=== PATIENT | male | born 1950 | race Caucasian/White ===

== ENCOUNTER → 2017-09-27 10:20 | Day surgery (SDC) | payer MEDICARE, BC ==
[~2017-09-27 10:20] MED LIST: Diazepam TAB(*) 5 MG ONE; Heparin 2 UNITS/ML IVPREMIX* 0 ML IV ONE; Heparin 2 UNITS/ML IVPREMIX* 3,000 ML IV ONE; Heparin(*) 1000 UNIT/ML 10 ML VIAL CATH LAB IV ONE; Iodixanol* (CONTRAST) 320 MG/ML 100 ML SDV ONE; Iohexol 350 (CONTRAST) 200 ML MDV IV ONE; Lidocaine 1% INJ* 10 MG/ML 30 ML SDV ONE; Midazolam* 1 MG/ML 10 ML VIAL (10 MG) ONE; NS 0.9% 1000 ML* 1,000 ML IV SCH; VERAPAMIL 2.5 MG/ML 4 ML VIAL ONE; diPHENhydraMINE PO* 25 MG ONE; fentaNYL* 50 MCG/ML 2 ML VIAL (100 MCG VIAL) ONE; nitroGLYCERIN DRIP* 25,000 MCG/250 ML BTL ONE
[2017-09-27 17:43] VITALS: BP 127/61
--- NOTE | 2017-10-04 04:58 | CATH ---
Cc: Dr. Werner; Dr. Rodriguez; Dr. Kobi Duong * CATH REPORT: DATE OF PROCEDURE: 09/27/[address] - [facility] CATH PRIMARY CARE PHYSICIAN: Dr. Werner. PACKING AND SHIPPING CLERK: Dr. Rodriguez. CARDIAC SURGEON: Dr. Kobi Duong at [facility] PROCEDURES: Right radial artery access, bilateral selective coronary cineangiography. HISTORY: A 67-year-old male with bicuspid aortic valve stenosis referred for coronary angiography prior to evaluation for AVR. PROCEDURE ACCESS: Right radial artery sheath 6-F slender. MEDICATIONS: 1. Subcu lidocaine. 2. IV Versed. 3. IV fentanyl. 4. Heparin 3000 units. 5. Verapamil 3 mg. 6. Nitroglycerin 300 mcg IA. DIAGNOSTIC CATHETER: 5F TIG4. HEMODYNAMICS: Initial BP 164/79, final BP 126/80. ANGIOGRAPHY: There is a heavy calcification of the aortic valve leaflets, which have a diminished excursion. There is also calcification of the left main and LAD, proximal circumflex. Left main: The left main is normal in size, has mild distal taper without significant stenosis. LAD: The LAD is moderate, it supplies a very small first diagonal, moderate second diagonal, moderate third diagonal. The third diagonal has a 40% to 50% stenosis, the LAD beyond the third diagonal has luminal irregularity, the LAD ends past the apex. Circumflex: The circumflex is large, codominant, has a smooth tubular 40% to 50 % proximal stenosis, then supplies a large bifurcated marginal, ends with a large posterolateral followed by small caliber circumflex PDA. Distal circumflex has no significant stenosis. RCA: The RCA is codominant, small to moderate, has a proximal 80% stenosis, the mid RCA has calcification, has nonobstructive stenosis, distally the RCA supplies a moderate PDA. CONCLUSION: 1. Two-vessel coronary disease, circumflex and RCA, with at most moderate LAD diagonal branch disease. 2. Successful right radial artery access. [id number]/[facility] #: [id number] [facility]ITALDorothy
== END | disposition home or self-care (01) ==
LOC: CHICATH 10:20
PROVIDERS: ATTEND Internal Medicine Cardiovascular Disease
DX: Q23.1 Congenital insufficiency of aortic valve (principal); I25.10 Atherosclerotic heart disease of native coronary artery without angina pectoris; Q23.0 Congenital stenosis of aortic valve; I70.213 Atherosclerosis of native arteries of extremities with intermittent claudication, bilateral legs; R06.02 Shortness of breath; R53.83 Other fatigue; E78.2 Mixed hyperlipidemia; I10 Essential (primary) hypertension; K21.9 Gastro-esophageal reflux disease without esophagitis; Z87.891 Personal history of nicotine dependence; R09.89 Other specified symptoms and signs involving the circulatory and respiratory systems
CPT/HCPCS: 93454; 99156; A9270-GY; J1644; J2250; J3010

== ENCOUNTER 2018-04-04 19:55 | Emergency (ER) | payer MEDICARE, OTHER ==
--- OUTSIDE RECORDS SUMMARY | 2018-04-04 20:33 | XMS REPORT ---
:1950 External Reference #:[id number] Author Organization [facility] Address [address] [place] [address] [place] [address] Phone [phone] Care Team Providers Name Role Phone Carli Orellana MD Primary Care Physician Unavailable Payers Type Date Identification Numbers Payment Provider Subscriber Medicare Primary Policy Number: [id number] Medicare Claudia Conway PayID: [id number] [address] [place] [address] Commercial PayID: [id number] [facility] Claudia Conway [address] [place] [address] Problems Date Description Provider Status Onset: 09/19/2017 Congenital insufficiency of aortic Jazlyn Rodriguez M.D. Active valve Onset: 09/19/2017 Congenital stenosis of aortic Jazlyn Rodriguez M.D. 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 Active atherosclerosis of shawnee artery of limb Onset: 09/19/2017 Mixed hyperlipidemia Jazlyn Rodriguez M.D. Active Onset: 12/01/2017 Carotid artery occlusion Jazlyn Rodriguez M.D. Active Onset: 12/01/2017 Essential hypertension Jazlyn Rodriguez M.D. Active Onset: 12/01/2017 Heart valve replacement Jazlyn Rodriguez M.D. Active Onset: 10/05/2017 Aortic valve disorder Carlton Ann MD, Active [facility] Family History Date Family Member(s) Problem(s) Comments General Diabetes paternal grandparents Mother Diabetes Social History Type Date Description Comments Marital Status Lives With Spouse Occupation Retired retired chef & owner of [employer] ETOH Use Occasionally consumes beer socially Smoking Patient is a former smoker quit in 2014, smoked for 50 years 1 ppd Recreational Drug Use Denies Drug Use Daily Caffeine Consumes on average 2 cups of regular coffee per day Exercise Type/Frequency Exercises regularly walking daily 2 miles per day 4 days per week Allergies, Adverse Reactions, Alerts Date Description Reaction Status Severity Comments 09/19/2017 Lisinopril active Severe per PCP records 09/19/2017 Prinivil active Severe per PCP records 09/19/2017 Cardura migraine active Moderate to Severe per PCP record 09/19/2017 Simvastatin active mentation foggy 07/21/2016 NKDA inactive Medications Medication Date Status Form Strength Qnty SIG Indications Ordering Provider Spironolactone/ 03/27/ Active Tablets 25-25mg 1/2 tab by Kathryn Hardy Hydrochlorothia 2018 mouth every , N.P. Rosuvastatin 03/12/ Active Tablets 20mg 36tab 1 tab M,W Jazlyn Calcium 2017 and Monday. Rosita Rodriguez Pantoprazole / Active Tablets DR 40mg 1 by mouth Unknown Sodium 0000 twice a day Metoprolol / Active Tablets 25mg 90tab 1 by mouth Jazlyn Tartrate 0000 s twice daily Rosita Rodriguez Aspirin Ec / Active Tablets DR 325mg take 1 tab Unknown 0000 by mouth every day Rosuvastatin 10/06/ Hx Tablets 10mg 12tab take 2 Jazlyn Calcium 2017 - s tablet by Michael, 03/12/ mouth [place] Jernigan M.D. 2017 Aspirin 81 Low 10/04/ Hx Chewtabs 81mg 90uni 1 by mouth Carlton Alaniz 2018 - ts every day Soddarío, 03/26/ , FACC, 2018 FSCAI Betamethasone / Hx Cream 0.05% apply twice Unknown Dipropionate 0000 - a day 2017 Spironolactone/ / Hx Tablets 25-25mg 1 by mouth Unknown Hydrochlorothia 0000 - every day zide 2017 Labetalol HCL / Hx Tablets 100mg 1 by mouth Unknown 0000 - twice a day 2017 Amlodipine / Hx Tablets 5mg 1 by mouth Unknown Besylate 0000 - twice a day 2017 Tums / Hx Chewtabs 500mg 2 chewtabs Unknown 0000 - by mouth 11/30/ daily as 2018 needed indigestion Ferrous / Hx Tablets 324(37.5F 30tab 1 by mouth Unknown Gluconate 0000 - e) mg s bid 2017 Folic Acid / Hx Tablets 1mg 1 by mouth Unknown 0000 - every day 2017 Hydrocodone/Apa / Hx 1-2 by mouth Unknown p 0000 - 4 times per 2018 Colace / Hx Capsules 100mg 1 tab by Unknown 0000 - mouth 2 times a day 2018 as needed Vital Signs Date Vital Result Comment 03/27/2018 Height 69.5 inches 5'9.50" Weight 197.00 lb Heart Rate 72 /min BP Systolic Sitting 130 mmHg lue reg cuff BP Diastolic Sitting 70 mmHg lue reg cuff BP Systolic Standing 122 mmHg BP Diastolic Standing 70 mmHg Respiratory Rate 16 /min BMI (Body Mass Index) 28.7 kg/m2 Ejection Fraction 55-60% 01/18/2018 ecco 01/26/2018 Height 69.5 inches 5'9.50" Weight 191.00 lb with shoes Heart Rate 70 /min BP Systolic Sitting 140 mmHg Lue reg cuff BP Diastolic Sitting 90 mmHg Lue reg cuff BP Systolic Standing 132 mmHg Lue reg cuff BP Diastolic Standing 90 mmHg Lue reg cuff Respiratory Rate 16 /min BMI (Body Mass Index) 27.8 kg/m2 12/01/2017 Height 69.5 inches 5'9.50" Weight 188.25 lb W/Shoes Heart Rate 78 /min BP Systolic Sitting 110 mmHg L/Arm Reg Cuff BP Diastolic Sitting 68 mmHg L/Arm Reg Cuff BP Systolic Standing 108 mmHg L/Arm Reg Cuff BP Diastolic Standing 68 mmHg L/Arm Reg Cuff BMI (Body Mass Index) 27.4 kg/m2 Ejection Fraction 60-65% Echocardiogram 08/24/2017 10/05/2017 Height 69.5 inches 5'9.50" Weight 202.00 lb w/ shoes Heart Rate 78 /min BP Systolic Sitting 132 mmHg lue reg cuff BP Diastolic Sitting 74 mmHg lue reg cuff BP Systolic Standing 138 mmHg lue reg cuff BP Diastolic Standing 82 mmHg lue reg cuff Respiratory Rate 18 /min BMI (Body Mass Index) 29.4 kg/m2 Ejection Fraction 60-65% echo 08/24/17 09/19/2017 Height 69.5 inches 5'9.50" Weight 204.00 lb Heart Rate 92 /min BP Systolic 130 mmHg Rue reg cuff BP Diastolic 70 mmHg Rue reg cuff BP Systolic Sitting 132 mmHg Lue reg cuff BP Diastolic Sitting 76 mmHg Lue reg cuff BP Systolic Standing 126 mmHg Lue BP Diastolic Standing 88 mmHg Lue Respiratory Rate 16 /min BMI (Body Mass Index) 29.7 kg/m2 Ejection Fraction 60-65% 08/24/17 08/04/2016 Heart Rate 78 /min Respiratory Rate 16 /min Body Temperature 97.1 F 07/28/2016 Height 69 inches 5'9" Weight 202.00 lb Heart Rate 68 /min BP Systolic 144 mmHg BP Diastolic 90 mmHg Respiratory Rate 16 /min Body Temperature 97.6 F BMI (Body Mass Index) 29.8 kg/m2 07/21/2016 Height 69 inches 5'9" Weight 202.00 lb Heart Rate 72 /min BP Systolic 142 mmHg BP Diastolic 82 mmHg Respiratory Rate 18 /min Body Temperature 97.4 F BMI (Body Mass Index) 29.8 kg/m2 Results Test Date Test Result H/L Range Note Laboratory test finding 01/16/2018 Creatine Kinase(CK) 60 U/L 10-223 1 Lipid Profile 01/16/2018 Triglycerides 192 mg/dL 2 (Trig/Chol/HDL) Cholesterol 152 mg/dL 3 HDL Cholesterol 33.1 mg/dL 4 LDL Cholesterol 81 mg/dL 5 Laboratory test finding 01/16/2018 Ast (Sgot) 13 U/L 13-39 6 Basic Metabolic Panel 01/16/2018 Sodium 136 mmol/L Low 139-145 Potassium 4.1 mmol/L 3.5-5.0 Chloride 100 mmol/L Low 101-111 Co2 Carbon Dioxide 27 mmol/L 22-32 Anion Gap 9 mmol/L 2-11 Glucose 83 mg/dL 70-100 Blood Urea Nitrogen 21 mg/dL 6-24 Creatinine 1.28 mg/dL High 0.67-1.17 BUN/Creatinine Ratio 16.4 8-20 Calcium 9.6 mg/dL 8.6-10.3 Egfr Non- 55.9 >60 Egfr 71.9 >60 7 Basic Metabolic Panel 10/23/2017 Sodium 136 mmol/L 133-145 Potassium 4.0 mmol/L 3.5-5.0 Chloride 99 mmol/L Low 101-111 Co2 Carbon Dioxide 30 mmol/L 22-32 Anion Gap 7 mmol/L 2-11 Glucose 80 mg/dL 70-100 Blood Urea Nitrogen 29 mg/dL High 6-24 Creatinine 1.18 mg/dL High 0.67-1.17 BUN/Creatinine Ratio 24.6 High 8-20 Calcium 9.9 mg/dL 8.6-10.3 Egfr Non- 61.4 >60 Egfr 78.9 >60 8 Basic Metabolic Panel 09/22/2017 Sodium 135 mmol/L 133-145 Potassium 4.0 mmol/L 3.5-5.0 Chloride 98 mmol/L Low 101-111 Co2 Carbon Dioxide 29 mmol/L 22-32 Anion Gap 8 mmol/L 2-11 Glucose 89 mg/dL 70-100 Blood Urea Nitrogen 23 mg/dL 6-24 Creatinine 1.29 mg/dL High 0.67-1.17 BUN/Creatinine Ratio 17.8 8-20 Calcium 9.8 mg/dL 8.6-10.3 Egfr Non- 55.4 >60 Egfr 71.2 >60 9 Inr/Protime 09/22/2017 Inr 0.99 0.77-1.02 CBC Auto Diff 09/22/2017 White Blood Count 9.8 10^3/uL 3.5-10.8 Red Blood Count 4.57 10^6/uL 4.0-5.4 Hemoglobin 13.0 g/dL Low 14.0-18.0 Hematocrit 39 % Low 42-52 Mean Corpuscular Volume 85 fL 80-94 Mean Corpuscular Hemoglobin 28 pg 27-31 Mean Corpuscular HGB Conc 33 g/dL 31-36 Red Cell Distribution Width 14 % 10.5-15 Platelet Count 373 10^3/uL 150-450 Mean Platelet Volume 8 um3 7.4-10.4 Abs Neutrophils 7.1 10^3/uL 1.5-7.7 Abs Lymphocytes 1.6 10^3/uL 1.0-4.8 Abs Monocytes 0.8 10^3/uL 0-0.8 Abs Eosinophils 0.3 10^3/uL 0-0.6 Abs Basophils 0.1 10^3/uL 0-0.2 Abs Nucleated RBC 0 10^3/uL Granulocyte % 71.9 % 38-83 Lymphocyte % 15.9 % Low 25-47 Monocyte % 8.5 % 1-9 Eosinophil % 2.6 % 0-6 Basophil % 1.1 % 0-2 Nucleated Red Blood Cells % 0 Cath Panel 09/22/2017 Partial Thrombo Time 30.2 seconds 26.0-36.3 PTT Laboratory test 07/21/2016 Surgical Pathology SEE RESULT BELOW 10 finding 1 FASTING January 2018 on Rosuvastatin 10 mg M W F Copy Result to: CARLI ORELLANA ([id number]) 2 Desirable: <150 Borderline High: 150-199 High: 200-499 Very High: >500 3 Desirable: <200 Borderline High: 200-239 High: >239 4 Low: <40 Desirable: 40-60 High: >60 5 Desirable: <100 Near Optimal: 100-129 Borderline High: 130-159 High: 160-189 Very High: >189 6 FASTING January 2018 on Rosuvastatin 10 mg M W F Copy Result to: CARLI ORELLANA ([id number]) 7 Because ethnic data is not always readily available, this report includes an eGFR for both -Americans and non- Americans. The National Kidney Disease Education Program (NKDEP) does not endorse the use of the MDRD equation for patients that are not between the ages of 18 and 70, are , have extremes of body size, muscle mass, or nutritional status, or are non- or non-. According to the National Kidney Foundation, irrespective of diagnosis, the stage of the disease is based on the level of kidney function: Stage Description GFR(mL/min/1.73 m(2)) 1 Kidney damage with normal or decreased GFR 90 2 Kidney damage with mild decrease in GFR 60-89 3 Moderate decrease in GFR 30-59 4 Severe decrease in GFR 15-29 5 Kidney failure <15 (or dialysis) 8 Because ethnic data is not always readily available, this report includes an eGFR for both -Americans and non- Americans. The National Kidney Disease Education Program (NKDEP) does not endorse the use of the MDRD equation for patients that are not between the ages of 18 and 70, are , have extremes of body size, muscle mass, or nutritional status, or are non- or non-. According to the National Kidney Foundation, irrespective of diagnosis, the stage of the disease is based on the level of kidney function: Stage Description GFR(mL/min/1.73 m(2)) 1 Kidney damage with normal or decreased GFR 90 2 Kidney damage with mild decrease in GFR 60-89 3 Moderate decrease in GFR 30-59 4 Severe decrease in GFR 15-29 5 Kidney failure <15 (or dialysis) 9 Because ethnic data is not always readily available, this report includes an eGFR for both -Americans and non- Americans. The National Kidney Disease Education Program (NKDEP) does not endorse the use of the MDRD equation for patients that are not between the ages of 18 and 70, are , have extremes of body size, muscle mass, or nutritional status, or are non- or non-. According to the National Kidney Foundation, irrespective of diagnosis, the stage of the disease is based on the level of kidney function: Stage Description GFR(mL/min/1.73 m(2)) 1 Kidney damage with normal or decreased GFR 90 2 Kidney damage with mild decrease in GFR 60-89 3 Moderate decrease in GFR 30-59 4 Severe decrease in GFR 15-29 5 Kidney failure <15 (or dialysis) 10 SEE RESULT BELOW Name: CLAUDIA CONWAY : [address]: Tino Lal MD Acct: [id number] Unit: [id number] AGE: 66 Location: [facility] Re07/21/16 SEX: M Status: REG REF SPEC: [id number] VENKATESH: 07/21/16-[address] [facility] [address]: Tino Lal MD REQ: [id number] RECD: 07/21/16 STATUS: JACK CROWDER DR: Carli Orellana MD _ ORDERED: PASS STAIN, GMSS, LEVEL IV COMMENTS: [id number] FINAL DIAGNOSIS Skin, right arm, biopsy: -- Hypertrophic actinic keratosis. COMMENT: GMS and PAS stains, with appropriately reacting controls, are negative for fungal organisms. Dr. Mayen reviewed this case in intradepartmental consultation and agrees with the diagnosis. CLINICAL HISTORY No history given GROSS DESCRIPTION The specimen is received in formalin labeled, Right Arm Lesion, and consists of a 0.3 x 0.2 cm pandey-white ovoid skin punch excised to a depth of 0.5 cm. Received separately in the same container is a 0.3 x 0.2 x 0.2 cm pandey-bartlett irregular probable skin fragment. Entirely submitted, one cassette. Signed (signature on file) Pratima Magallanes MD 05/03 1043 END OF REPORT * ML=Testing performed at Main Lab DEPARTMENT OF PATHOLOGY, [address] [place] [address] Albert Mayen M.D. Director [facility] # [id number] Procedures Date CPT Code Description Status 01/18/2018 36742 ECHO Transthoracic, Real-Time 2D With Doppler And Color Completed Flow 01/18/2018 00531 ECHO Transthoracic, Real-Time 2D With Doppler And Color Completed Flow 12/01/2017 07055 EKG Tracing & Interpretation Completed 10/17/2017 27361 Carotid Doppler,Bilateral Completed 10/17/2017 11443 Carotid Doppler,Bilateral Completed 09/27/2017 30072 Cath PLMT&NJX L Ventriculog Img S&I Completed 09/19/2017 85689 EKG Tracing & Interpretation Completed 08/24/2017 02953 ECHO Transthoracic, Real-Time 2D With Doppler And Color Completed Flow 07/28/2016 41276 Excision, Benign Trunk,Arms,Legs 0.6 CM To 1.0 CM Completed 07/21/2016 66604 Biopsy Skin Lesion Single Completed Encounters Type Date Location Provider CPT E/M Dx Office Visit 01/26/2018 4:00p [facility] Jazlyn Rodriguez M.D. 56498 Z95.2 [facility] I25.10 I65.23 E78.2 Office Visit 12/01/2017 8:40a [facility] Jazlyn Rodriguez M.D. 79059 Q23.0 [facility] AT [facility] [place] Z95.2 I10 E78.2 I65.23 Office Visit 10/05/2017 3:20p [facility] Carlton Ann, 76732 I35.0 [facility] AT [facility] [place] MD, FACC, FSCAI Office Visit 09/19/2017 9:40a [facility] Jazlyn Rodriguez M.D. 11631 Q23.1 [facility] Q23.0 I70.213 I10 E78.2 R09.89 Plan of Care Future Appointment(s):04/03/2018 10:00 am - Nurse Visit IC at [facility]05/04/2018 10:20 am - Jazlyn Rodriguez M.D. at [facility] AT [facility] [place]03/27/2018 - Kathryn Aponte N.PDaraI25.10 Athscl heart disease of shawnee coronary artery w/o ang yuhgkA30.23 Occlusion and stenosis of bilateral carotid ilwocgnzF49.2 Mixed bhxbvwxvajqjihE05.2 Presence of prosthetic heart [id number] Essential (primary) hypertensionFollow up:NV to check BP 1 week with machine OV 04/2018Recommendations:DECREASE Metoprolol to 25mg TWICE daily Restart Elijah/ HCTZ 1/2 tab daily Have labs checked 2-3 weeks
[2018-04-04] MEDS ORDERED: Ondansetron INJ* 2 MG/ML VIAL IV ONE ×2 (20:44→20:46)
[2018-04-04] MEDS ORDERED: NS 0.9% 1000 ML* 1,000 ML IV ONE (20:44)
[2018-04-04 20:57] LABS: ABS Basophils 0.1 10^3/ul (0-0.2); ABS Eosinophils 0.2 10^3/ul (0-0.6); ABS Lymphocytes 1.2 10^3/ul (1.0-4.8); ABS Monocytes 0.8 10^3/ul (0-0.8); ABS Neutrophils 7.5 10^3/ul (1.5-7.7); ABS Nucleated RBC 0 10^3/ul; Hematocrit 38 % (42-52); Hemoglobin 12.5 g/dl (14.0-18.0); Lymphocyte % 12.3 % (25-47); Mean Corpuscular HGB Conc 33 g/dl (31-36); Mean Corpuscular Hemoglobin 27 pg (27-31); Mean Corpuscular Volume 82 fL (80-94); Mean Platelet Volume 7.6 um3 (7.4-10.4); Nucleated Red Blood Cells % 0; Platelet Count 273 10^3/ul (150-450); Red Blood Count 4.58 10^6/ul (4.00-5.40); Red Cell Distribution Width 15 % (10.5-15); White Blood Count 9.7 10^3/ul (3.5-10.8)
--- NOTE | 2018-04-04 20:58 | ED ---
Abdominal Pain/Male - HPI Summary HPI Summary: This patient is a 67 year old M [facility] by with a chief complaint of sudden onset waxing and waning N/V since just after dinner this PM. He endorses N/V (2x emetic), sweats, chills, HTN, vertigo. Pt denies CP, abd pain, diarrhea. SHx heart surgery, carotid endarterectomy. - History of Current Complaint Chief Complaint: EDNauseaVomitDiarrh Stated Complaint: VOMITING/BP SPIKE Time Seen by Provider: 04/04/18 20:37 Hx Obtained From: Patient Onset/Duration: Sudden Onset, Lasting Hours, Still Present Timing: Constant - but waxing and waning Severity Initially: Moderate Severity Currently: Mild Pain Intensity: 0 Pain Scale Used: 0-10 Numeric Radiates: No Character: Not Applicable Aggravating Factor(s): Food Alleviating Factor(s): Nothing Associated Signs And Symptoms: Positive: Diaphoresis, Dizzy, Nausea, Vomiting. Negative: Fever, Chest Pain, Diarrhea - Allergies/Home Medications Allergies/Adverse Reactions: Allergies Allergy/AdvReac Type Severity Reaction Status Date / Time doxazosin Allergy Severe Anaphylatic Verified 10/24/17 14:35 Shock lisinopril Allergy Severe Anaphylatic Verified 10/24/17 14:35 Shock MS Simvastatin [Simvastatin] Allergy See Comment Verified 09/27/17 12:57 Home Medications: Home Medications Aspirin TAB* [Aspirin 325 MG TAB*] 325 mg PO DAILY 04/04/18 [History Confirmed 04/04/18] Metoprolol Tartrate TAB* [Lopressor TAB*] 25 mg PO BID 04/04/18 [History Confirmed 04/04/18] Pantoprazole TAB (NF) [Protonix TAB (NF)] 40 mg PO BID 04/04/18 [History Confirmed 04/04/18] Rosuvastatin (NF) [Crestor] 20 mg PO MOWEFR 04/04/18 [History Confirmed 04/04/18 ] Spironolactone/HCTZ 25-25 MG* [Aldactazide 25-25*] 0.5 tab PO DAILY 04/04/18 [ History Confirmed 04/04/18] PMH/Surg Hx/FS Hx/Imm Hx Endocrine/Hematology History: Denies: Hx Diabetes Cardiovascular History: Reports: Hx Hypertension - ON MEDICATION FOR, Other Cardiovascular Problems/Disorders - HI CHOLESTEROL History: Denies: Hx Renal Disease Musculoskeletal History: Reports: Hx Arthritis - BACK AND KNEES, HANDS, Hx Joint Replacement - knee, Other Musculoskeletal History - RT ARM, OLD INJURY Sensory History: Reports: Hx Contacts or Glasses - GLASSES Denies: Hx Hearing Aid Opthamlomology History: Reports: Hx Contacts or Glasses - GLASSES EENT History: Denies: Hx Deafness Neurological History: Reports: Hx Migraine - ONCE IN A WHILE- RELATED TO SINUSES - Surgical History Surgery Procedure, Year, and Place: COLONOSCOPY. 1990s REPAIR FOR TRAUMA TO FACE- [facility], [facility]. 08/02/2013 RT KNEE SCOPE [facility]. Carotic endartectomy. " heart surgery" Hx Anesthesia Reactions: No Infectious Disease History: Yes Infectious Disease History: Denies: Traveled Outside the [place] in Last 30 Days - Family History Known Family History: Negative: Blood Disorder - Social History Lives: With Family - Alcohol Use: Occasionally Substance Use Type: Reports: None Review of Systems Positive: Chills, Skin Diaphoresis. Negative: Fever Negative: Chest Pain Positive: Vomiting, Nausea. Negative: Abdominal Pain, Diarrhea Neurological: Other - "vertigo" All Other Systems Reviewed And Are Negative: Yes Physical Exam - Summary Physical Exam Summary: Appearance: Well appearing, no pain distress Skin: warm, dry, reflects adequate perfusion Head/face: normal Eyes: EOMI, ASIM ENT: normal Neck: supple, non-tender Respiratory: CTA, breath sounds present Cardiovascular: RRR, pulses symmetrical Abdomen: non-tender, soft Bowel: present Musculoskeletal: normal, strength/ROM intact Neuro: normal, sensory motor intact, A&Ox3 Triage Information Reviewed: Yes Vital Signs On Initial Exam: Initial Vitals Temp Pulse Resp BP Pulse Ox 97.3 F 73 16 153/84 97 04/04/18 20:01 04/04/18 20:01 04/04/18 20:01 04/04/18 20:01 04/04/18 20:01 Vital Signs Reviewed: Yes Diagnostics - Vital Signs Vital Signs Temp Pulse Resp BP Pulse Ox 04/04/18 20:01 97.3 F 73 16 153/84 97 - Laboratory Result Diagrams: 04/04/18 20:50 04/04/18 20:50 Lab Statement: Any lab studies that have been ordered have been reviewed, and results considered in the medical decision making process. - EKG 2042 Cardiac Rate: NL - 62 EKG Rhythm: Sinus Rhythm EKG Interpretation: leads V1-V3 early repolarization Re-Evaluation - Re-Evaluation First Eval Re-Evaluation Time: 00:33 Change: Improved Comment: no longer nauseous Abdominal Pain Fem Course/Dx - Course Course Of Treatment: A 89-riwr-gih M presents to the ED with a CC of N/V since just after dinner this PM. (+) N/V, diaphoresis, chills, "vertigo". (-) chest pain, abdominal pain, diarrhea.PMHx HTN, carotid endartectomy, heart surgery. A CXR reveals ___. An EKG reveals nl sinus at rate 62 BPM, and early repolarization in leads V1-V3. An abdomen XR reveals . In the ED course, pt was given zofran, nl saline. - Diagnoses Provider Diagnoses: Vomiting - Provider Notifications Discussed Care Of Patient With: Jazlyn Castro Time Discussed With Above Provider: 21:23 Instructed by Provider To: Other - discontinue spirinolactone, follow up as outpatient. Discharge - Sign-Out/Discharge Documenting (check all that apply): Sign-Out Patient Signing out patient TO: Aracelis Li - repeat jeremy D/C - Discharge Plan Condition: Good Disposition: HOME Prescriptions: Ondansetron [Zofran Odt] 4 mg PO TID #20 tab Patient Education Materials: Acute Nausea and Vomiting (ED) Referrals: Job Werner MD [Primary Care Provider] - Additional Instructions: take Zofran every 6 hours as need nausea and vomiting Follow up with Dr castro today discontinue spironolactone per Dr castro Follow up with primary Return to ED if develop any new or worsening symptoms - Billing Disposition and Condition Condition: GOOD Disposition: Home
[2018-04-04 21:06] LABS: INR 0.89 (0.77-1.02)
[2018-04-04 21:17] LABS: EGFR Non-African American 55.9 (>60)
[2018-04-04 22:47] LABS: Urine Appearance Clear; Urine Blood Negative (Negative); Urine Color Yellow; Urine Ketones Negative (Negative); Urine Protein Negative (Negative); Urine Specific Gravity 1.017 (1.010-1.030); Urine Urobilinogen Negative (Negative)
--- NOTE | 2018-04-05 00:16 | ED ---
Progress - Progress Note Progress Note: Patient signed out by Dr. Scherer pending second troponin. Second troponin was negative. Patient no longer nauseous. gave nausea medication to go. Patient will follow-up with Dr. Castro. Patient was advised to stop the spironolactone. Patient will call the a.m. for appointment with Dr. Castro. Re-Evaluation - Re-Evaluation First Eval Re-Evaluation Time: 00:33 Change: Improved Comment: no longer nauseous Course/Dx - Course Course Of Treatment: A [id number] M presents to the ED with a CC of N/V since just after dinner this PM. (+) N/V, diaphoresis, chills, "vertigo". (-) chest pain, abdominal pain, diarrhea.PMHx HTN, carotid endartectomy, heart surgery. A CXR reveals ___. An EKG reveals nl sinus at rate 62 BPM, and early repolarization in leads V1-V3. An abdomen XR reveals . In the ED course, pt was given zofran, nl saline. Patient signed out by Dr. Scherer pending second troponin. Second troponin was negative. Patient no longer nauseous. gave nausea medication to go. Patient will follow-up with Dr. Castro. Patient was advised to stop the spironolactone. Patient will call the a.m. for appointment with Dr. Castro. - Diagnoses Provider Diagnoses: Vomiting - Provider Notifications Time Discussed With Above Provider: 21:23 Instructed by Provider To: Other - discontinue spirinolactone, follow up as outpatient. Discharge - Sign-Out/Discharge Documenting (check all that apply): Receiving Sign-Out Receiving patient FROM: Jarod Scherer - Discharge Plan Condition: Good Disposition: HOME Prescriptions: Ondansetron [Zofran Odt] 4 mg PO TID #20 tab Patient Education Materials: Acute Nausea and Vomiting (ED) Referrals: Job Werner MD [Primary Care Provider] - Additional Instructions: take Zofran every 6 hours as need nausea and vomiting Follow up with Dr castro today discontinue spironolactone per Dr castro Follow up with primary Return to ED if develop any new or worsening symptoms - Billing Disposition and Condition Condition: GOOD Disposition: Home
[2018-04-05 00:35] VITALS: BP 169/76
[2018-04-05] MEDS ORDERED: Ondansetron ODT TAB* 4 MG PO ONE (00:58)
--- NOTE | 2018-04-05 08:44 | RAD ---
HISTORY: vomiting COMPARISONS: None VIEWS: 1: frontal portable view of the chest at 9:16 PM FINDINGS: LINES AND TUBES: None. CARDIOMEDIASTINAL SILHOUETTE: The cardiomediastinal silhouette is normal for portable technique. PLEURA: The costophrenic angles are sharp. No pleural abnormalities are noted. LUNG PARENCHYMA: The lungs are clear. ABDOMEN: The upper abdomen is clear. There is no subphrenic gas. BONES AND SOFT TISSUES: The patient is status post median sternotomy. IMPRESSION: NO ACTIVE CARDIOPULMONARY DISEASE. R1
--- NOTE | 2018-04-05 08:45 | RAD ---
HISTORY: vomiting COMPARISONS: None VIEWS: Frontal views of the abdomen. FINDINGS: BOWEL: There is a nonobstructive bowel gas pattern. There is a large amount of stool within the colon. CALCULI: There are no abnormal calculi. BONES AND SOFT TISSUES: Degenerative changes are noted. There is atherosclerosis of the aorta. OTHER FINDINGS: The lung bases are clear. There is no subphrenic gas. IMPRESSION: NONOBSTRUCTIVE BOWEL GAS PATTERN. LARGE AMOUNT OF STOOL WITHIN THE COLON. R1
== END 2018-04-05 01:20 | disposition home or self-care (01) ==
LOC: ED 19:55
DX: R11.2 Nausea with vomiting, unspecified (principal); R61 Generalized hyperhidrosis; R42 Dizziness and giddiness; I10 Essential (primary) hypertension; E78.00 Pure hypercholesterolemia, unspecified; Z96.659 Presence of unspecified artificial knee joint; Z98.890 Other specified postprocedural states; Z88.8 Allergy status to other drugs, medicaments and biological substances
CPT/HCPCS: 36415; 71045; 74018; 80053; 81003; 83605; 84484; 85025; 85610; 85730; 93005; 96361; 96374; 99283; A9270-GY; J2405